=== PATIENT | female | born 1955 | race Caucasian/White ===

== ENCOUNTER → 2024-03-07 11:22 | Outpatient (REF) | payer MEDICARE, SELFPAY | LOC: HWRAD 11:22 | PROVIDERS: ATTENDING PHYSICIAN Nurse Practitioner Family | DX: Z78.0 Asymptomatic menopausal state (principal); Z12.31 Encounter for screening mammogram for malignant neoplasm of breast | CPT/HCPCS: 77063; 77067; 77080 ==

== ENCOUNTER 2024-10-25 04:52 | Emergency (ER) | payer MEDICARE, SELFPAY ==
[2024-10-25 04:55] VITALS: BP 113/83
[2024-10-25 05:39] LABS: % Basophils 0.5 % (0-2); % Eosinophils 3.5 % (0-6); % Immature Granulocytes 0.2 % (0-0.5); % Lymphocytes 37.6 % (20.5-51.1); % Monocytes 8.3 % (1.7-9.3); % Neutrophils 49.9 % (42.2-75.2); Absolute Eosinophils 0.3 10^3/uL (0-0.7); Absolute Lymphocytes 3.3 10^3/uL (1.2-3.4); Absolute Monocytes 0.7 10^3/uL (0.1-0.6); Absolute Neutrophils 4.4 10^3/uL (1.4-6.5); Hematocrit 42.1 % (37.0-47.0); Hemoglobin 14.3 g/dL (12.0-16.0); Mean Corpuscular Hgb 29.5 pg (27.0-31.0); Mean Corpuscular Volume 86.8 fL (81.0-99.0); Mean Platelet Volume 9.6 fL (7.4-10.4); Nucleated Red Blood Cells % 0 %; Platelet Count 226 10^3/uL (130-400); Red Blood Cell Count 4.85 10^6/uL (4.20-5.40); Red Cell Dist. Width 12.5 % (11.5-14.5); White Blood Cell Count 8.8 10^3/uL (4.8-10.8)
[2024-10-25 05:50] LABS: Urine Albumin Negative (Neg - Trace); Urine Bilirubin Negative (Negative); Urine Character Clear (Clear); Urine Color Yellow; Urine Glucose Negative (Negative); Urine Ketone Negative (Negative); Urine Leukocyte 2+ (Negative); Urine Nitrite Negative (Negative); Urine Occult Blood Negative (Negative); Urine Urobilinogen Negative (Neg - 1+)
[2024-10-25 05:54] LABS: ALT (SGPT) 20 U/L (0-35); AST (SGOT) 25 U/L (14-36); Albumin 4.3 g/dl (3.5-5.0); Alkaline Phosphatase 89 U/L (38-126); Blood Urea Nitrogen 13 mg/dl (7-17); Calcium 9.6 mg/dl (8.4-10.2); Carbon Dioxide 24 mmol/L (22-30); Chloride 106 mmol/L (98-107); Glucose 98 mg/dl (70-99); Lipase 187 U/L (23-300); Potassium 4.1 mmol/L (3.5-5.1); Sodium 139 mmol/L (135-145); Total Bilirubin 0.6 mg/dl (0.2-1.3); Total Protein 7.2 g/dl (6.3-8.2); eGFR > 60.00
--- NOTE | 2024-10-25 06:13 | EDRN ---
gone. Pt states that the pain is intermittent. Pt has not slept good due to the pain.
[2024-10-25 06:15] VITALS: BP 117/81; BMI 29.2
--- NOTE | 2024-10-25 06:31 | ED.GENMED ---
History of Present Illness
General
Chief Complaint: Urinary Symptoms
Time Seen by Provider: 10/25/24 06:31
History of Present Illness
History of Present Illness:
TIME OF INITIAL ENCOUNTER: 7:05 AM
HPI: Over the past month, the patient has been having an intermittent generalized unwell feeling. She was also concerned of the possibly of urinary tract infection and went to urgent care where she was placed on Macrobid. She was also concerned of
a yeast infection and was also given 2 doses of Diflucan. Overall she felt improved on the Macrobid but does not still feel quite like her normal self and came in here for further evaluation. She developed discomfort in the back described as
burning more so on the left side. She is not aware of a urine culture from urgent care. He was on Prilosec in August with some improvement of symptoms but now symptoms recurred.
EXAM:
GENERAL: Well appearing in no distress
HEENT: Moist oral mucosa
CARDIOVASCULAR: No murmurs, normal heart rate, regular rhythm, No chest wall tenderness
PULMONARY: No respiratory distress, breath sounds are clear and equal
ABDOMEN: Soft with no peritoneal signs, no tenderness, no significant CVA tenderness but reports some discomfort just left of midline in the lower thoracic region but not tender to palpation
NEUROLOGIC: Excellent strength all extremities, no coordination deficits
PSYCHIATRIC: Appropriate mental status, normal insight and judgement
EXTREMITIES: Nontender, no edema, moves all extremities equally
SKIN: No rash, no lesions, no evidence of zoster
NUMBER AND COMPLEXITY OF PROBLEMS ADDRESSED AT THE ENCOUNTER
� Chronic conditions affecting care: GERD, anxiety
� Acute Exacerbation and/or Progression of Chronic Illness: This is an acute problem
� Differential Diagnosis includes: UTI, pyelonephritis, ureteral stone
AMOUNT AND/OR COMPLEXITY OF DATA TO BE REVIEWED AND ANALYZED
� I performed an independent evaluation of and my interpretation is:
EKG:
CT: CT suggests mild mesenteric panniculitis�I personally reviewed CT images as well
X-rays:
Laboratory Studies: White count is 8.8, hemoglobin normal, chemistries unremarkable, urinalysis shows 2+ leukocyte esterase, however micro shows less than 5 white cells on urinalysis
Other:
� Review of other/old records: CT of the abdomen pelvis in 2022 suggested jejunitis
� Clinical information was obtained by an independent historian:
� Prescriptions/Medications Considered but not given: Considered Rocephin however the patient does not have clear sign of urinary tract infection
� Further testing considered but not performed:
RISK OF COMPLICATIONS AND/OR MORBIDITY OR MORTALITY OF PATIENT MANAGEMENT
� Social determinants of health affecting care: Lives at home
� Discussion with other providers:
� Escalation of care including admission/observation vs risk of discharge considered: The patient's labs are unremarkable. Urinalysis does not show any clear sign of infection. Will obtain CT imaging given the new pain near the
left flank region.
ANY OTHER UPDATES:
Urinalysis is not consistent with UTI as she has less than 5 white cells per high-power field. CT imaging suggest mild mesenteric panniculitis with no sign of ureteral stone. The patient was given IV fluids and Toradol.
8:40 AM: I reassessed patient, no significant improvement but she appears comfortable. She will resume another 2-week course of Prilosec.
Past History
Past History
ED Past Medical History: Hypercholesterolemia, Psychiatric (anxiety), Other (migraines) and Other (chronic abdominal pain, today is worse, takes Prilosec prn, hasn't helped past few days.)
ED Past Surgical History: Appendectomy, Cholecystectomy and Other
Social History
Tobacco: Non-smoker
Alcohol: None
Drug: None
Personal:
Living: with family
Employment: Not employed
Family History
Family History: Other
Phy Exam
Physical Exam
Physical Exam:
See HPI
Course
Orders/Labs/Results
Orders:
Orders
10/25/24 05:14
Complete Blood Count/With Diff Urgent
Comprehensive Metabolic Panel Urgent
Lipase Urgent
Urinalysis Reflex To Culture Urgent
Date Specimen was Collected: 10/25/24
Time Specimen was Collected: 05:05
Urine Microscopic Reflex Cult Urgent
Urine Culture Urgent
BENI Source: U
Specimen Description:
Date Specimen was Collected: 10/25/24
Time Specimen was Collected: 05:05
10/25/24 07:13
CT Abd/pel Without Iv Or Oral Urgent
Comment:
Reason For Exam: L flank pain
0.9% Sodium Chloride 1000 ml [Nss] 1,000 ml IV BOLUS
Ketorolac [Toradol] 15 mg IV NOW STA
Abnormal Lab Results
10/25/24
05:14
Absolute Monos (auto) 0.7 H 10^3/uL
(0.1-0.6)
Leukocyte Esterase Rfl 2+ A
(Negative)
10/25/24 05:14
10/25/24 05:14
Vital Signs
Initial and Last Documented VS:
Initial Vital Signs
Temp Pulse Resp BP Pulse Ox
36.5 C 79 16 113/83 99
10/25/24 04:55 10/25/24 04:55 10/25/24 04:55 10/25/24 04:55 10/25/24 04:55
Last Documented Vital Signs
Temp Pulse Resp BP Pulse Ox
36.5 C 65 18 112/85 98
10/25/24 04:55 10/25/24 07:54 10/25/24 07:54 10/25/24 07:54 10/25/24 07:54
*Critical Care Note
Total Time (30-74mins, 75-104mins- exclusive of procedures): Not Applicable
ED Attending Note
-
Portions of this chart may have been created with voice recognition software.� Occasional wrong word or��sound alike� substitutions may have occurred due to the inherent limitations of voice recognition software.
Discharge Plan
Departure
Prescriptions:
No Action
atorvastatin 10 MG tablet
20 mg PO QPM
montelukast 10 MG tablet
10 mg PO DAILY
lactobacillus combination no.4 [Probiotic] 1 EACH capsule
1 ea PO PRN PRN (Reason: gut health)
cannabidiol [Epidiolex] 1 UNIT solution
1 unit inhalation PRN PRN (Reason: sleep,anxiety, pain)
multivitamin 1 EACH tablet
1 ea PO DAILY
Vitamin D3 (cholecalciferol):
1,000 units PO DAILY
triamcinolone acetonide [Nasacort] 10.8 ML aerosol,spray
1 spray intranasal DAILY
metronidazole 500 MG tablet
500 mg PO BID 10 Days Qty: 20 0RF
levofloxacin 500 MG tablet
500 mg PO BID 10 Days Qty: 20 0RF
Referrals:
Chu Salazar CRNP [Family Provider] -
Interventions
Interventions:
*Risk Screen - Suicide Last Done: 10/25/24 04:55
*General Assessment Last Done: 10/25/24 06:08
*Neglect/Abuse Screening Last Done: 10/25/24 06:08
ED- Fall Risk Assessment Last Done: 10/25/24 06:08
*ED COVID-19 Vaccine History Last Done: 10/25/24 06:08
ED-Female Genitourinary Assessment Last Done: 10/25/24 06:08
Discharge Date and Time
Print Language: [id number]
[2024-10-25 07:09] LABS: Urine Red Blood Cell 0-2 /HPF (0-2)
[2024-10-25 07:52] VITALS: BP 112/85
[2024-10-25] MEDS: TORADOL 15 MG IV (07:53)
[2024-10-25 07:54] VITALS: BP 112/85
[2024-10-25] MEDS: NSS 1000 IV (07:54)
[2024-10-25 08:00] VITALS: BP 120/81
[2024-10-25 08:55] VITALS: BP 120/90
== END 2024-10-25 09:01 | disposition home or self-care (01) ==
LOC: EMR 04:52
PROVIDERS: Student in an Organized Health Care Education/Training Program; EMERGENCY PHYSICIAN Emergency Medicine; FAMILY PHYSICIAN Nurse Practitioner Family
DX: K65.4 Sclerosing mesenteritis (principal); E78.00 Pure hypercholesterolemia, unspecified; F41.9 Anxiety disorder, unspecified; Z90.49 Acquired absence of other specified parts of digestive tract
CPT/HCPCS: 99284; 96374; 96361; 74176; 80053; 81003; 81015; 83690; 85025; 87086

== ENCOUNTER 2025-04-13 14:42 | Emergency (ER) | payer MEDICARE, SELFPAY ==
[2025-04-13 14:55] VITALS: BP 125/81
[2025-04-13 15:12] LABS: Hematocrit 40.1 % (37.0-47.0); Hemoglobin 13.8 g/dL (12.0-16.0); Mean Corp Hgb Conc. 34.4 g/dL (33.0-37.0); Mean Corpuscular Volume 87.0 fL (81.0-99.0); Nucleated Red Blood Cells % 0 %; Platelet Count 184 10^3/uL (130-400); Red Cell Dist. Width 12.8 % (11.5-14.5)
[2025-04-13 15:28] LABS: ALT (SGPT) 18 U/L (0-35); AST (SGOT) 23 U/L (14-36); Albumin 4.4 g/dl (3.5-5.0); Alkaline Phosphatase 76 U/L (38-126); Blood Urea Nitrogen 20 mg/dl (7-17); Calcium 9.0 mg/dl (8.4-10.2); Carbon Dioxide 23 mmol/L (22-30); Chloride 110 mmol/L (98-107); Glucose 114 mg/dl (70-99); Potassium 4.0 mmol/L (3.5-5.1); Sodium 141 mmol/L (135-145); Total Protein 7.2 g/dl (6.3-8.2); eGFR > 60.00
[2025-04-13 15:40] LABS: Troponin I < 0.012 ng/ml
[2025-04-13 16:38] VITALS: BP 150/125
[2025-04-13 16:52] VITALS: BMI 29.1
[2025-04-13 17:00] VITALS: BP 133/108
[2025-04-13 18:00] VITALS: BP 112/71
[2025-04-13 18:11] LABS: D-Dimer < 0.27 ug/mlFEU (0.00-0.50)
--- NOTE | 2025-04-13 19:06 | ED.GENMED ---
History of Present Illness
General
Chief Complaint: Chest Pain
Source: patient
Exam Limitations: none
Time Seen by Provider: 04/13/25 16:42
Nursing documentation reviewed up to this point in time: agreed with
History of Present Illness
History of Present Illness:
Patient to ED with complaint of SOB, CP intermittently x 1 week. Denies fever/chills, recent illness. No prior history of same. Brought self to ED for eval.
Past History
Past History
ED Past Medical History: Hypercholesterolemia, Psychiatric (anxiety), Other (migraines) and Other (chronic abdominal pain, today is worse, takes Prilosec prn, hasn't helped past few days.)
ED Past Surgical History: Appendectomy, Cholecystectomy and Other
Social History
Tobacco: Non-smoker
Alcohol: None
Drug: None
Personal:
Living: with family
Employment: Not employed
Family History
Family History: Other
Review of Systems
Review of Systems
Allergies reviewed?: Yes
All Other Systems: ROS reviewed and negative except as documented in HPI and ROS
Constitutional: Reports no symptoms
EENT: Reports no symptoms
Respiratory: Reports trouble breathing
Cardiac: Reports chest pain (intermittent)
ABD/GI: Reports no symptoms
: Reports no symptoms
Musculoskeletal: Reports no symptoms
Skin: Reports no symptoms
Neurological: Reports no symptoms
Psychiatric: Reports no symptoms
Phy Exam
General Physical Exam
General Presentation: well appearing and no apparent distress
General age: appears stated age
General Skin: warm and dry
General Habitus: normal
General Mental: alert
Cardiovascular Exam
Cardiovascular Exam: regular rate/rhythm and no edema
Pulmonary Exam
Pulmonary Exam: lungs clear, no respiratory distress and chest non tender
Musculoskeletal Exam
Musculoskeletal Exam: full ROM and neuro vasc intact
Skin Exam
Skin Exam: normal color, warm/dry and no rash
Psychiatric Exam
Psychiatric Exam: normal mood/affect
Scores
Heart Score for Chest Pain Patients
STEMI patient?: No
History: Slightly or Non-Suspicious
ECG: Normal
Age: >45 - <65 years
Risk Factors: 1 or 2 Risk Factors
Troponin: </= Normal Limit
Heart Score for Chest Pain Patients: 2
Heart Score Risk: 2.5% MACE over next 6 weeks
Course
Orders/Labs/Results
Orders:
Orders
04/13/25 14:57
Electrocardiogram (*1) Urgent
Reason for Study: Chest Pain
EKG- Treatment ONCE
04/13/25 15:06
Complete Blood Count/With Diff Urgent
Comprehensive Metabolic Panel Urgent
Troponin I Urgent
04/13/25 17:42
CR Chest - 2 Views Urgent
Comment:
Reason For Exam: SOB
04/13/25 17:49
D-Dimer Urgent
Abnormal Lab Results
04/13/25
15:06
Absolute Monos (auto) 0.8 H 10^3/uL
(0.1-0.6)
Chloride 110 H mmol/L
(98-107)
BUN 20 H mg/dl
(7-17)
Glucose 114 H mg/dl
(70-99)
04/13/25 15:06
04/13/25 15:06
Vital Signs
Initial and Last Documented VS:
Initial Vital Signs
Temp Pulse Resp BP Pulse Ox
98.2 F 94 14 125/81 98
04/13/25 14:55 04/13/25 14:55 04/13/25 14:55 04/13/25 14:55 04/13/25 14:55
Last Documented Vital Signs
Temp Pulse Resp BP Pulse Ox
98.2 F 78 27 112/71 96
04/13/25 14:55 04/13/25 18:45 04/13/25 18:45 04/13/25 18:00 04/13/25 19:12
*Radiology
Radiology exam reviewed: radiology read reviewed
*Pulse Oximetry
SaO2: 96
Oxygen Mode of Delivery: Room air
Patient hypoxic: no
*Critical Care Note
Total Time (30-74mins, 75-104mins- exclusive of procedures): Not Applicable
Update Note
Update Note:
Patient to ED with complaint of SOB, intermittent chest pain x 1 week. VSS, CBC/CMP WNL. Troponin neg, ddimer neg. EKG NSR, CXR NAD. Pulse ox 98% RA in ED. No concerning findings on physicial exam. No chest pain. Will dishcarge home, she will
follow up with PCP in AM. Given instructions on s/s to returnt to eD and she is agreeable to plan.
ED Attending Note
-
Portions of this chart may have been created with voice recognition software.� Occasional wrong word or��sound alike� substitutions may have occurred due to the inherent limitations of voice recognition software.
Discharge Plan
Departure
Patient Disposition: Home (Routine Discharge)
Date of Disposition: 04/13/25
Time of Disposition: 19:12
Patient with high blood pressure during this ER visit?: No
Condition: Good
Covid-19: Not Applicable
Discharge Problem:
Dyspnea
Instructions: Shortness of breath in adults - ED discharge instructions
Prescriptions:
No Action
atorvastatin 10 MG tablet
20 mg PO QPM
montelukast 10 MG tablet
10 mg PO DAILY
lactobacillus combination no.4 [Probiotic] 1 EACH capsule
1 ea PO PRN PRN (Reason: gut health)
cannabidiol [Epidiolex] 1 UNIT solution
1 unit inhalation PRN PRN (Reason: sleep,anxiety, pain)
multivitamin 1 EACH tablet
1 ea PO DAILY
Vitamin D3 (cholecalciferol):
1,000 units PO DAILY
triamcinolone acetonide [Nasacort] 10.8 ML aerosol,spray
1 spray intranasal DAILY
metronidazole 500 MG tablet
500 mg PO BID 10 Days Qty: 20 0RF
levofloxacin 500 MG tablet
500 mg PO BID 10 Days Qty: 20 0RF
Referrals:
Chu Salazar CRNP [Family Provider, Family Practice] - Tomorrow
Activity Restrictions/Additional Instructions:
Return to the emergency department immediately for any changes in/worsening of your symptoms.
Interventions
Interventions:
*Risk Screen - Suicide Last Done: 04/13/25 14:55
*General Assessment Last Done: 04/13/25 16:49
*Neglect/Abuse Screening Last Done: 04/13/25 14:55
*ED- Fall Risk Assessment Last Done: 04/13/25 16:49
*ED COVID-19 Vaccine History Last Done: 04/13/25 16:49
ED- Cardiac Assessment Last Done: 04/13/25 16:51
Discharge Date and Time
Print Language: ROMANSH
== END 2025-04-13 19:32 | disposition home or self-care (01) ==
LOC: EMR 14:42
PROVIDERS: Emergency Medicine; Nurse Practitioner; EMERGENCY PHYSICIAN Emergency Medicine; FAMILY PHYSICIAN Nurse Practitioner Family
DX: R06.00 Dyspnea, unspecified (principal); R07.9 Chest pain, unspecified; E78.00 Pure hypercholesterolemia, unspecified; Z90.49 Acquired absence of other specified parts of digestive tract
CPT/HCPCS: 99285; 71046; 80053; 84484; 85025; 85379; 93005

== ENCOUNTER → 2025-05-05 10:40 | Outpatient (REF) | payer MEDICARE, SELFPAY | LOC: HWWDC 10:40 | PROVIDERS: ATTENDING PHYSICIAN Nurse Practitioner Family | DX: Z12.31 Encounter for screening mammogram for malignant neoplasm of breast (principal) | CPT/HCPCS: 77063; 77067 ==